=== PATIENT | female | born 1930 | race Caucasian/White ===

== ENCOUNTER 2017-08-31 09:56 | Outpatient (CLI) | payer MEDICARE, BC | END 2017-08-31 09:57 | disposition home or self-care (01) | LOC: BICCT 09:56 | PROVIDERS: ATTEND Obstetrics & Gynecology | DX: R10.9 Unspecified abdominal pain (principal); N28.1 Cyst of kidney, acquired; K44.9 Diaphragmatic hernia without obstruction or gangrene; I70.90 Unspecified atherosclerosis | CPT/HCPCS: 74150 ==